=== PATIENT | female | born 2000 | race Asian ===

== ENCOUNTER → 2021-08-09 10:38 | Outpatient (CLI) | payer OTHER, MEDICAID, SELFPAY ==
--- NOTE | 2021-08-09 | DI.US.S_ITS ---
PROCEDURE: US THYROID INDICATIONS: HYPOTHYROIDISM TECHNIQUE: Real-time scanning was performed of the thyroid gland, with image documentation. COMPARISON: None. FINDINGS: Right: The right thyroid lobe measures 1.3 x 1.3 x 4.3 centimeters. No nodule. Uniform and normal thyroid echogenicity. Left: The left thyroid lobe measures 1.1 x 1.3 x 4.4 centimeters. No nodule. Uniform and normal thyroid echogenicity. Isthmus: 2 millimeter thickness and normal in appearance. IMPRESSION: Normal size and appearance of the thyroid. No nodule or mass. Dictated by: Axel Rivas M.D. on 08/10/2021 at 11:07 Approved by: Axel Rivas M.D. on 08/10/2021 at 11:07
== END ==
PROVIDERS: PCP Family Medicine; Referring Provider Family Medicine; Visit Provider Family Medicine
DX: E03.9 Hypothyroidism, unspecified (principal)
CPT/HCPCS: 76536

== ENCOUNTER 2021-08-19 15:14 | Emergency (ER) | payer OTHER, MEDICAID, SELFPAY ==
[2021-08-19] VITALS (7 sets, daily range): BP systolic 105–128; BP diastolic 63–68; PULSE 77–93; RESP 16–22; TEMP 36.4; O2SAT 100; BMI 24.5
--- NOTE | 2021-08-19 15:27 | DI.RAD.S_ITS ---
PROCEDURE: XR CHEST 1V INDICATIONS: chest pain TECHNIQUE: One view of the chest was acquired. COMPARISON: None. FINDINGS: Surgical changes and devices: None. Lungs and pleura: Lungs are clear. No pleural effusions or pneumothorax. Mediastinum: Mediastinal contours appear normal. Heart size is normal. Bones and chest wall: No suspicious bony lesions. Overlying soft tissues appear unremarkable. IMPRESSION: No acute cardiopulmonary pathology. Dictated by: Perez Baxter M.D. on 08/19/2021 at 15:56 Approved by: Perez Baxter M.D. on 08/19/2021 at 15:56
[2021-08-19] MEDS: diphenhydrAMINE 25 MG TABLET 50 MG PO (15:30)
[2021-08-19 15:52] LABS: Add Manual Diff / Slide Review NO; Basophils Absolute Auto 0 /uL (0-100); Basophils Percent Auto 0.8 % (0-2); Eosinophils Absolute Auto 100 /uL (0-450); Eosinophils Percent Auto 2.1 % (2-4); Hematocrit 39.2 % (36-46); Hemoglobin 12.9 g/dL (12.0-16.0); Lymphocytes Absolute Auto 1600 /uL (1100-4500); Lymphocytes Percent Auto 26.5 % (25-40); Mean Corpuscular HGB Conc 32.8 % (30-36); Mean Corpuscular Hemoglobin 28.2 PG (26-34); Mean Corpuscular Volume 85.9 fL (80-100); Monocytes Absolute Auto 400 /uL (0-900); Monocytes Percent Auto 6.5 % (3-14); Neutrophils Absolute Auto 3900 /uL (1500-7000); Neutrophils Percent Auto 64.1 % (50-75); Platelet Count 345 X10^3/uL (150-400); Red Blood Cell Count 4.57 X10^6/uL (4.0-5.2); Red Cell Distribution Width 12.9 % (11.6-14.8); White Blood Cell Count 6.1 X10^3/uL (4.5-11.0)
[2021-08-19 16:05] LABS: Alanine Aminotransferase 23 IU/L (<35); Albumin 4.7 g/dL (3.5-5.0); Albumin Globulin Ratio 1.5 (1.0-2.8); Alkaline Phosphatase 78 U/L (38-126); Aspartate Aminotransferase 25 IU/L (14-36); BUN Creatinine Ratio 11.5 (6-22); Bilirubin Total 0.3 mg/dL (0.2-1.3); Blood Urea Nitrogen 7 mg/dL (7-17); Calcium 9.5 mg/dL (8.4-10.2); Carbon Dioxide 27 mmol/L (22-32); Chloride 101 mmol/L (98-107); Creatine Kinase 43 U/L (30-135); Estimated Glomerular Filt Rate > 60.0 mL/min (>60); Globulin 3.2 g/dL (1.7-4.1); Glucose 87 mg/dL (70-100); HEMOLYSIS < 15 (0-50); Lipase 678 U/L (23-300); Magnesium 1.9 mg/dL (1.6-2.3); Potassium 3.6 mmol/L (3.4-5.1); Sodium 139 mmol/L (137-145); Total Protein 7.9 g/dL (6.3-8.2)
[2021-08-19 16:16] LABS: Troponin I < 0.012 ng/mL (0.01-0.034)
--- NOTE | 2021-08-19 21:22 | ED_ITS ---
HPI - Chest Pain General Chief Complaint: Chest Pain Stated Complaint: CHEST PAIN SWELLING OF THROAT Time Seen by Provider: 08/19/21 21:13 Source: patient Mode of arrival: Ambulatory Limitations: no limitations History of Present Illness HPI narrative: This is a 20-year-old female comes emergency department with com plaint of swelling sensation in her throat and sometimes tightness in her chest. She states it occurred today while driving in her car at around 2:00 a.m.. She states Um mid has improved after some Benadryl here. She has had multiple episodes in the past. She thought that it may be related to pollen and springtime but she has also noted sometimes after foods but not consistently. She was started on an anti reflux medication which helps somewhat. She has also been told maybe it was her thyroid. She does not have any swelling of her lips, mouth or face or body no rash or skin changes. She does not feel tight or wheezy in her chest currently. She denies pain. Denies any cough, cold or congestion. No runny nose. No swelling in her extremities. No shortness of breath. No nausea or vomiting. No abdominal pain, no back or flank pain. She denies any urinary symptoms. No diarrhea constipation. She has a history of asthma and seasonal allergies she takes montelukast, loratadine, Nexium and surgeries 17. No prior surgeries. No tobacco alcohol or illicit. She has a family history of asthma and thyroid issues. She has been told that she has been on steroids a lot for similar symptoms in the past and that the lining of her soften guess is probably irritated. Her primary care is Dr. Cordero. Related Data Allergies Allergy/AdvReac Type Severity Reaction Status Date / Time No Known Drug Allergies Allergy Verified 08/19/21 15:17 Review of Systems Review of Systems ROS Unobtainable: All systems reviewed & are unremarkable except as noted in HPI and below Patient History Social History Smoking Status: Never smoker Smoking Status: Never smoker Substance Use Type: does not use Exam Narrative Exam Narrative: GEN: well nourished, well appearing female, alert and oriented x 3, patient appears to be in mild distress. HEENT: Atraumatic, pupils are equal round reactive to light, extraocular movements are intact, nares are clear, Throat is clear without any exudates, erythema, tonsillar enlargement or uvular deviation, no oral facial swelling. Normal speech. No stridor. No wheeze. No hoarseness. HEART: Regular rate and rhythm without murmur, clicks, rubs. LUNGS:Lungs clear to auscultation, no wheezes, rales, crackles, chest moves symmetrically ABD:bowel sounds normal, soft, non-tender, no guarding, rebound, rigidity, no masses noted, no hepatosplenomegaly :No CVA tenderness MSCL: Non-tender, full range of motion. NEURO:CN 2-12 intact, sensation normal SKIN: No rash, erythema or other skin changes. Initial Vital Signs Initial Vital Signs: Vital Signs Temperature 97.6 F 08/19/21 15:17 Pulse Rate 93 H 08/19/21 15:17 Respiratory Rate 18 08/19/21 15:17 Blood Pressure 128/68 08/19/21 15:17 Pulse Oximetry 100 08/19/21 15:17 Course Orders Ordered: Discontinued Medications Dexamethasone (Dexamethasone 10 Mg/Ml Vial) 10 mg PO NOW ONE Stop: 08/19/21 21:58 Last Admin: 08/19/21 22:04 Dose: 10 mg Documented by: AN Diphenhydramine HCl (Diphenhydramine 25 Mg Tablet) 50 mg PO NOW ONE Stop: 08/19/21 15:24 Last Admin: 08/19/21 15:30 Dose: 50 mg Documented by: PILLO Vital Signs Vital signs: Vital Signs - 8 hr 08/19/21 15:17 08/19/21 20:52 08/19/21 21:00 Temperature 97.6 F Pulse Rate 93 H 77 88 Respiratory Rate 18 17 22 Blood Pressure 128/68 105/63 Pulse Oximetry 100 100 100 08/19/21 21:30 08/19/21 22:00 Temperature Pulse Rate 79 83 Respiratory Rate 17 16 Blood Pressure 107/65 106/65 Pulse Oximetry 100 100 MDM - Chest Pain Lab Data Result diagrams: 08/19/21 15:42 08/19/21 15:42 Labs: Lab Results 08/19/21 08/19/21 Range/Units 15:42 15:42 WBC 6.1 (4.5-11.0) X10^3/uL RBC 4.57 (4.0-5.2) X10^6/uL Hgb 12.9 (12.0-16.0) g/dL Hct 39.2 (36-46) % MCV 85.9 (80-100) fL MCH 28.2 (26-34) PG MCHC 32.8 (30-36) % RDW 12.9 (11.6-14.8) % Plt Count 345 (150-400) X10^3/uL Neut % (Auto) 64.1 (50-75) % Lymph % (Auto) 26.5 (25-40) % Mclennan % (Auto) 6.5 (3-14) % Eos % (Auto) 2.1 (2-4) % Baso % (Auto) 0.8 (0-2) % Neut # (Auto) 3900 (8334-2613) /uL Lymph # (Auto) 1600 (0737-9989) /uL Mclennan # (Auto) 400 (0-900) /uL Eos # (Auto) 100 (0-450) /uL Baso # (Auto) 0 (0-100) /uL Sodium 139 (137-145) mmol/L Potassium 3.6 (3.4-5.1) mmol/L Chloride 101 (98-107) mmol/L Carbon Dioxide 27 (22-32) mmol/L BUN 7 (7-17) mg/dL Creatinine 0.61 (0.52-1.04) mg/dL Estimated GFR > 60.0 (>60) mL/min BUN/Creatinine Ratio 11.5 (6-22) Glucose 87 (70-100) mg/dL Calcium 9.5 (8.4-10.2) mg/dL Magnesium 1.9 (1.6-2.3) mg/dL Total Bilirubin 0.3 (0.2-1.3) mg/dL AST 25 (14-36) IU/L ALT 23 (<35) IU/L Alkaline Phosphatase 78 (38-126) U/L Total Creatine Kinase 43 (30-135) U/L CK-MB (CK-2) TNP CK-MB (CK-2) Rel Index TNP Troponin I < 0.012 (0.01-0.034) ng/mL Total Protein 7.9 (6.3-8.2) g/dL Albumin 4.7 (3.5-5.0) g/dL Globulin 3.2 (1.7-4.1) g/dL Albumin/Globulin Ratio 1.5 (1.0-2.8) Lipase 678 H (23-300) U/L Point of Care Testing Test Results Negative Urine Dip Bedside Urine Glucose Negative Bedside Urine Bilirubin - Negative Bedside Urine Ketone - Negative Urine Specific [place] 1.010 Bedside Urine Occult Blood - Negative Bedside Urine pH 7.0 Bedside Urine Protein - Negative Bedside Urine Urobilinogen - Negative Bedside Urine Nitrite - Negative Bedside Urine Leukocytes - Negative Esterase Imaging Data Chest x-ray: Radiologist's Impression: [address] [address] XRay Report Signed Patient: Ivette De La Cruz MR#: [id number] : 2000 Acct:[id number] Age/Sex: 20 / F Date of Service: 08/19/21 Loc: ED Accession Number: [id number] ?? Procedure: XR chest 1V Ordering Provider: Britany Ruiz MD PROCEDURE:? XR CHEST 1V ? INDICATIONS:? chest pain ? TECHNIQUE:? One view of the chest was acquired.? ? COMPARISON:? None. ? FINDINGS:? ? Surgical changes and devices:? None.? ? Lungs and pleura:? Lungs are clear.? No pleural effusions or pneumothorax.? ? Mediastinum:? Mediastinal contours appear normal.? Heart size is normal.? ? Bones and chest wall:? No suspicious bony lesions.? Overlying soft tissues appear unremarkable.? ? IMPRESSION:? No acute cardiopulmonary pathology. ? ? Dictated by: Perez Baxter M.D. on 08/19/2021 at 15:56 ? ? Approved by: Perez Baxter M.D. on 08/19/2021 at 15:56?? US - abdomen: Radiologist's Impression: prelim-negative. [address] [address] Ultrasound Report Signed Patient: Ivette De La Cruz MR#: [id number] : 2000 Acct:[id number] Age/Sex: 20 / F Date of Service: 08/19/21 Loc: ED Accession Number: [id number] ?? Procedure: US abdomen limited Ordering Provider: Mank,Elizabeth C D.O. PROCEDURE: US ABDOMEN LIMITED ? INDICATIONS:? CHEST PAIN AND ELEVATED LIPASE ? TECHNIQUE:? Real-time focused scanning was performed of the abdomen, with image documentation.? ? COMPARISON:? None. ? FINDINGS:? ? Liver is normal in size and homogeneous in echotexture. ? Gallbladder is sonographically normal. No gallstones. No gallbladder wall thickening.? Gallbladder wall measures 1.7 millimeters.? No pericholecystic fluid. No sonographic Smith sign. ? Biliary tree is nondilated.? Common bile duct measures 4.4 millimeters. ? Head and body pancreas are sonographically normal.? Tail is not visualized due to bowel gas and cannot be evaluated. ? IMPRESSION:? No sonographic evidence of cholelithiasis or cholecystitis. If there is continued clinical concern for cholecystitis, a nuclear medicine HIDA scan should be considered for further evaluation. ? ? ? Dictated by: Jessica Quinones MD, PhD on 08/19/2021 at 23:04 ? ? Approved by: Jessica Quinones MD, PhD on 08/19/2021 at 23:05?? ECG Data Attestation: I personally reviewed and interpreted this ECG as follows: Prior ECG tracings: not available for review Interpretation: Sinus rhythm rate of 90 SC 136 QRS of 92 and QTC of 435. T wave inversion in 3 and AVF. No other changes appreciated. No ST elevation. MDM Narrative Medical decision making narrative: 20-year-old female comes emergency department sensation of swelling in her throat. Had improved her in the department. She had dose of Benadryl. So for dose of dexamethasone and has not had any worsening symptoms. We did discuss that seems like sometimes her symptoms will occur when exposed to seasonal type allergies or some foods. She has found that albuterol seems to be helpful discussed that maybe she is having an asthma exacerbation. No other acute allergic changes are noted. She did have labs with a lipase that was elevated and has had some chest discomfort she was evaluation ultrasound. She has mild elevation her pancreatic enzyme a but no other acute findings at this time. All questions answered. Patient and I discussed return precautions. Discharge Plan Departure Patient Disposition: Home Clinical Impression: Elevated lipase Instructions: Acute Pancreatitis Activity Restrictions/Additional Instructions: Your lipase level is mildly elevated today at 678. This is likely not causing the sensation in your throat but could cause chest discomfort or abdominal pain. Some individuals will feel nausea or vomiting. Please follow-up with your physician for recheck. You may continue home medications as prescribed. Please return for fevers, new or worsening abdominal, chest or back pain. Persistent vomiting, new concerns swelling or tightness in your throat, swelling of your lips, tongue or mouth, rash, hives, shortness of breath or wheezing or other new or concerning symptoms. Referrals: Vito Cordero MD [Primary Care Provider] -
--- NOTE | 2021-08-19 21:55 | DI.US.S_ITS ---
PROCEDURE: US ABDOMEN LIMITED INDICATIONS: CHEST PAIN AND ELEVATED LIPASE TECHNIQUE: Real-time focused scanning was performed of the abdomen, with image documentation. COMPARISON: None. FINDINGS: Liver is normal in size and homogeneous in echotexture. Gallbladder is sonographically normal. No gallstones. No gallbladder wall thickening. Gallbladder wall measures 1.7 millimeters. No pericholecystic fluid. No sonographic Smith sign. Biliary tree is nondilated. Common bile duct measures 4.4 millimeters. Head and body pancreas are sonographically normal. Tail is not visualized due to bowel gas and cannot be evaluated. IMPRESSION: No sonographic evidence of cholelithiasis or cholecystitis. If there is continued clinical concern for cholecystitis, a nuclear medicine HIDA scan should be considered for further evaluation. Dictated by: Jessica Quinones MD, PhD on 08/19/2021 at 23:04 Approved by: Jessica Quinones MD, PhD on 08/19/2021 at 23:05
[2021-08-19] MEDS: DEXAMETHASONE 10 MG/ML VIAL PO (22:04)
== END 2021-08-19 23:16 | disposition home or self-care (01) ==
PROVIDERS: Emergency Medicine; Emergency Provider Emergency Medicine; PCP Family Medicine
DX: R07.0 Pain in throat (principal); R07.9 Chest pain, unspecified; R74.8 Abnormal levels of other serum enzymes
CPT/HCPCS: 36415; 71045; 76705; 80053; 81003; 81025; 82550; 83690; 83735; 84484; 85025; 93005; 93010; 99284; J1100

== ENCOUNTER 2023-08-08 14:52 | Emergency (ER) | payer OTHER, SELFPAY ==
[2023-08-08 15:08] VITALS: BP 139/91; PULSE 95; RESP 16; TEMP 37; O2SAT 100; BMI 27.9
--- NOTE | 2023-08-08 15:44 | PC.NURSE ---
Pt received tattoo on L posterior FA 4 days ago. noticed a red diffuse rash covering the tattoo area, mildly raised. Saw BUD Sarmiento in [place] who prescribed keflex 500mg TID x 10 days. Has taken 2 days of ABX and states no difference. No systemic sx--denies fever. No itching. Using an antiseptic gentle wash. rash margins marked and do not appear to be spreading further outside margins.
[2023-08-08 15:55] VITALS: BP 148/84; PULSE 91; RESP 16; O2SAT 100
--- NOTE | 2023-08-08 15:57 | ED.SKABFB ---
HPI - Skin/Abscess/Foreign Bdy General Chief complaint: Skin/Abscess/Foreign Body Stated complaint: PERSISTANT RASH RT ARM Time Seen by Provider: 08/08/23 15:41 Source: patient Mode of arrival: Ambulatory Limitations: no limitations History of Present Illness HPI narrative: Patient is a 22-year-old female who got a new tattoo on her left forearm 4 days ago. About 24 hours after getting a tattoo, she developed redness around the tattoo. This has progressed. She saw a provider on [facility] 2 days ago who prescribed Keflex, t.i.d. for 10 days, for suspected cellulitis. She is been taking this for 2-1/2 days and does not think that the redness has decreased. It does not hurt or itch but it does sting when she applies ointment. She is not had a fever, there is no drainage from the rash. She reports a history of seasonal allergies and eczema, and has had skin reactions from previous tattoos. Related Data Allergies Allergy/AdvReac Type Severity Reaction Status Date / Time No Known Drug Allergies Allergy Verified 08/08/23 15:08 Review of Systems Review of Systems ROS Unobtainable: All systems reviewed & are unremarkable except as noted in HPI and below Patient History Social History Smoking Status: Never smoker Smoking Status: Never smoker Substance Use Type: does not use Exam Narrative Exam Narrative: GENERAL: 22 year old patient appears stated age. Well-developed patient, in no distress. NEURO: AOx3. HEAD: Atraumatic. Normocephalic. EYES: Pupils equal round and reactive. Extraocular motions intact. No scleral icterus. No injection or drainage. ENT: Nose without bleeding or purulent drainage. Airway patent. RESPIRATORY: No distress EXTREMITIES: No edema or joint tenderness. SKIN: Erythematous rash extending 4 cm and a eyak around her recent tattoo. The area is mildly erythematous, not warm. There is no drainage or exudate. There is no fluctuant abscess. Initial Vital Signs Initial Vital Signs: Vital Signs Temperature 98.6 F 08/08/23 15:08 Pulse Rate 95 H 08/08/23 15:08 Respiratory Rate 16 08/08/23 15:08 Blood Pressure 139/91 H 10/04/23 15:08 Pulse Oximetry 100 10/04/23 15:08 Oxygen Delivery Method Room Air 08/08/23 15:08 Course Vital Signs Vital signs: Vital Signs - 8 hr 08/08/23 15:08 08/08/23 15:55 Temperature 98.6 F Pulse Rate 95 H 91 H Respiratory Rate 16 16 Blood Pressure 139/91 H 148/84 H Pulse Oximetry 100 100 Oxygen Delivery Method Room Air Room Air MDM - Skin/Abscess/Foreign Bdy MDM Narrative Medical decision making narrative: Multiple etiologies for patient's symptoms considered including, but not limited to: Contact dermatitis, cellulitis, abscess. Patient is well-appearing and has not had a fever. There is no drainage from the rash. I suggested continuing the antibiotics, using Aquaphor to moisturize the skin, and watchful waiting. I suspect this is a contact dermatitis and will resolve over time. Return precautions discussed. Patient's symptoms improved over duration of stay with above-stated therapies. Findings and discharge diagnosis discussed with patient/family followed by verbalization of understanding Return precautions discussed with patient/family whom verbalize understanding of diagnosis and plan Discharge Plan Departure Patient Disposition: Home Clinical Impression: Rash, skin Instructions: DI for Cellulitis -- Adult, DI for Contact Dermatitis Activity Restrictions/Additional Instructions: *You have been diagnosed with a skin rash around your new tattoo. I agree that it is difficult to tell if this is a skin infection or a reaction to the tattoo or the tattoo ink. I am reassured that you do not have a fever and there is no drainage from the site. I would suggest continuing to take the antibiotics that were prescribed by a previous provider, applying Aquaphor twice daily to keep the area moist and protected, and continuing to monitor. I would take pictures daily to track the redness. If it is not getting better after 5 days of antibiotics or if it gets worse (if you develop a fever, if there is drainage from the wound, if it is spreading up your arm significantly) then you should return to the walk-in clinic or the emergency room for reassessment. *What to do: *Please continue to take your regular medications as directed. [ ] New medication prescriptions sent to your pharmacy: [ ] [ ] New medication written as a paper prescription [x] No new medications given *Please follow up with your primary care provider in 2-3 days, call for an appointment. Let them know you were seen in the Emergency Department and that we ask that you be seen in follow up. We will electronically transmit a record of today's note if your PCP is in our system *If you do not have a primary care provider please contact the [facility] Resource line at [phone]. They will ask some questions about your medical history and help get you set up with a doctor in the community. *Return to Emergency Department if you should have any new, worsening or concerning symptoms, such as [fever greater than 101 F, shaking chills, worsening pain, persistent vomiting or other concerning symptoms]. Stand Alone Forms: Patient Portal/API
== END 2023-08-08 15:59 | disposition home or self-care (01) ==
PROVIDERS: Emergency Provider Physician Assistant
DX: R21 Rash and other nonspecific skin eruption (principal)
CPT/HCPCS: 99281

== ENCOUNTER 2024-07-30 16:51 | Emergency (ER) | payer OTHER, MEDICAID, SELFPAY ==
[2024-07-30 17:07] VITALS: BP 130/85; PULSE 93; RESP 16; TEMP 36.9; O2SAT 98; BMI 27.9
--- NOTE | 2024-07-30 19:01 | PC.NURSE ---
This RN notes patient throat is red and slightly inflamed.
[2024-07-30 20:21] VITALS: BP 119/75; PULSE 86; RESP 16; O2SAT 100
[2024-07-30 21:16] LABS: Adenovirus Not Detected (Not Detect); B. parapertussis Not Detected (Not Detecte); Bordetella pertussis Not Detected (Not Detect); Chlamydophila pneumoniae Not Detected (Not Detect); Coronavirus 229E Not Detected (Not Detect); Coronavirus HKU1 Not Detected (Not Detect); Coronavirus NL 63 Not Detected (Not Detect); Coronavirus OC43 Not Detected (Not Detect); Human Metapneumovirus Not Detected (Not Detect); Human Rhinovirus/Enterovirus Not Detected (Not Detect); Influenza A Not Detected (Not Detect); Influenza B Not Detected (Not Detect); Mycoplasma pneumoniae Not Detected (Not Detect); Parainfluenza Virus 1 Not Detected (Not Detect); Parainfluenza Virus 2 Not Detected (Not Detect); Parainfluenza Virus 3 Not Detected (Not Detect); Parainfluenza Virus 4 Not Detected (Not Detect); Respiratory Syncytial Virus Not Detected (Not Detect); SARS- CoV-2 Not Detected (Not Detecte)
--- NOTE | 2024-07-30 21:28 | ED_ITS ---
HPI - URI/Sore Throat General Chief Complaint: Upper Respiratory Symptoms Stated Complaint: sinus infection Time Seen by Provider: 07/30/24 18:38 Source: patient Mode of arrival: Ambulatory History of Present Illness HPI Narrative: 23-year-old female with history of allergies presents with 1 week of nasal congestion and sore throat. Seen several days ago at [facility] for same without formal diagnosis. Patient states that this morning she coughed up some green mucous, but hasn't had cough or produced mucous since. Related Data Allergies Allergy/AdvReac Type Severity Reaction Status Date / Time No Known Drug Allergies Allergy Verified 07/30/24 17:10 Patient History Social History (System 08/09/23 @ 08:41 by Lady Lena García) Smoking Status: Never smoker Smoking Status: Never smoker Substance Use Type: does not use Exam Initial Vital Signs Initial Vital Signs: Vital Signs Temperature 98.4 F 07/30/24 17:07 Pulse Rate 93 H 07/30/24 17:07 Respiratory Rate 16 07/30/24 17:07 Blood Pressure 130/85 07/30/24 17:07 Pulse Oximetry 98 07/30/24 17:07 Oxygen Delivery Method Room Air 07/30/24 17:07 Const: Awake, alert, no acute distress, nontoxic appearing HEENT: mild pharyngeal erythema without edema or exudates Skin: Warm, Dry, intact, no rashes Neuro: AO x3, CN II-XII grossly intact, moves all extremities Course Orders Ordered: ED Orders 07/30/24 20:20 Respiratory Panel (Film Array) Stat Vital Signs Vital signs: Vital Signs - 8 hr 07/30/24 22:21 Temperature 98.3 F Pulse Rate 94 H Respiratory Rate 18 Blood Pressure 142/79 H Pulse Oximetry 100 Oxygen Delivery Method Room Air MDM - URI/Sore Throat Lab Data Labs: Lab Results 07/30/24 Range/Units 20:20 Chlamy pneumoniae PCR Not detected (Not Detect) Adenovirus (PCR) Not detected (Not Detect) B. pertussis DNA (PCR) Not detected (Not Detect) B.parapertussis DNA PCR Not detected (Not Detecte) Coronavirus OC43 (PCR) Not detected (Not Detect) Coronavirus HKU1 (PCR) Not detected (Not Detect) Coronavirus 229E (PCR) Not detected (Not Detect) SARS-CoV-2 (PCR) Not detected (Not Detecte) Coronavirus NL63 (PCR) Not detected (Not Detect) Human Metapneumovir PCR Not detected (Not Detect) Influenza Type A (PCR) Not detected (Not Detect) Influenza Type B (PCR) Not detected (Not Detect) M. pneumoniae (PCR) Not detected (Not Detect) Parainfluenza 1 (PCR) Not detected (Not Detect) Parainfluenza 2 (PCR) Not detected (Not Detect) Parainfluenza 3 (PCR) Not detected (Not Detect) Parainfluenza 4 (PCR) Not detected (Not Detect) RSV (PCR) Not detected (Not Detect) Entero/Rhino (PCR) Not detected (Not Detect) MDM Narrative Medical decision making narrative: Nonspecific sore throat and green mucus production this morning. Physical exam is fairly unremarkable, she does have mild pharyngeal erythema but no edema or exudates. Mucous membranes are moist. Respiratory panel negative for common viruses her pathogens. Quite possibly allergic in nature since patient does report long history of allergies. Patient counseled on supportive care measures to take at home. Discharge Plan Departure Patient Disposition: Home Clinical Impression: Upper respiratory infection Instructions: DI for Pharyngitis/Tonsillopharyngitis -- Adult Activity Restrictions/Additional Instructions: Your respiratory panel was negative for the most common viruses. Take tylenol and ibuprofen as needed for pain. You may use salt water gargles or lozenges for pain Referrals: Vito Cordero MD [Primary Care Provider] - Stand Alone Forms: Patient Portal/API
[2024-07-30 22:21] VITALS: BP 142/79; PULSE 94; RESP 18; TEMP 36.8; O2SAT 100
== END 2024-07-30 22:20 | disposition home or self-care (01) ==
PROVIDERS: Emergency Provider Emergency Medicine; PCP Family Medicine
DX: J06.9 Acute upper respiratory infection, unspecified (principal)
CPT/HCPCS: 87633; 99282

== ENCOUNTER 2025-05-02 05:16 | Emergency (ER) | payer OTHER, MEDICAID, SELFPAY ==
--- NOTE | 2025-05-02 05:23 | EKG_ITS ---
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
[2025-05-02 05:28] VITALS: BP 136/81; PULSE 105; RESP 18; O2SAT 98; BMI 28.3
--- NOTE | 2025-05-02 05:41 | ED.CHESTPAIN ---
HPI - Chest Pain General Chief Complaint: Chest Pain Stated Complaint: Facial Pain, Chest Pressure Time Seen by Provider: 05/02/25 05:23 Source: patient Mode of arrival: Ambulatory History of Present Illness HPI narrative: 24-year-old female with no significant past medical or past surgical history presents with multiple complaints today namely 1 intermittent chest pain that has been going on for the last 4-6 weeks she has had a history of chest wall inflammation for which she has taken some ibuprofen for in the past and that when she touches her chest on the left-sided does reproduce the pain. Patient reports having left-sided chest pain earlier today as well was seen at urgent care for left-sided neck jaw swelling and earache for which they did a chest x-ray and COVID and strep were negative. Patient was discharged on Tessalon Perles. Patient also reports last exercising over a week ago doing cardio exercises runny up inclines on a treadmill but denies fever chills shortness of breath dyspnea on exertion leg pain leg swelling. Other than what is stated 14 point review of system is negative. Related Data Previous Rx's ?Medication ?Instructions ?Recorded amoxicillin 875 mg-potassium 1 tab PO Q12H #14 tabs 05/02/25 clavulanate 125 mg tablet ketorolac 10 mg tablet 10 mg PO Q6H PRN pain #20 tabs 05/02/25 Allergies Allergy/AdvReac Type Severity Reaction Status Date / Time No Known Drug Allergies Allergy Verified 07/30/24 17:10 Review of Systems Review of Systems ROS Unobtainable: All systems reviewed & are unremarkable except as noted in HPI and below Exam Narrative Exam Narrative: GENERAL: [24] year old patient appears stated age. Well-developed patient, in mild distress. HEAD: Atraumatic. Normocephalic. EYES: Pupils equal round and reactive. Extraocular motions intact. No scleral icterus. No injection or drainage. ENT: Nose without bleeding. Bilateral maxillary sinuses tender to palpate worse on left side with drainage. Throat without erythema, tonsillar hypertrophy or exudate. Airway patent. NECK: Trachea midline. Non tender CARDIOVASCULAR: Tachycardic Regular rate and rhythm without murmurs, gallops, or rubs. Left upper chest wall tender to palpate completely reproduces pain RESPIRATORY: Clear to auscultation. Breath sounds equal bilaterally. No wheezes, rales, or rhonchi. GASTROINTESTINAL: Abdomen soft, non-tender, nondistended. EXTREMITIES: No edema or joint tenderness. BACK: Nontender without deformity or crepitance. No flank tenderness. NEURO: AOx3. SKIN: No rash or erythema of visible areas Initial Vital Signs Initial Vital Signs: Vital Signs Pulse Rate 105 H 05/02/25 05:28 Respiratory Rate 18 05/02/25 05:28 Blood Pressure 136/81 05/02/25 05:28 Pulse Oximetry 98 05/02/25 05:28 Oxygen Delivery Method Room Air 05/02/25 05:28 Course Orders Ordered: ED Orders 05/02/25 05:23 EKG-12 Lead Stat Acetaminophen (Acetaminophen 325 Mg Tablet) 975 mg PO NOW ONE Stop: 05/02/25 05:41 Amoxicillin/Clavulanate Potassium (Amoxicillin/Clav 875/125 Mg) 1 tab PO NOW ONE Stop: 05/02/25 05:41 Ketorolac Tromethamine (Ketorolac 30 Mg/Ml Vial) 30 mg IM NOW ONE Stop: 05/02/25 05:41 Vital Signs Vital signs: Vital Signs - 8 hr 05/02/25 05:28 Pulse Rate 105 H Respiratory Rate 18 Blood Pressure 136/81 Pulse Oximetry 98 Oxygen Delivery Method Room Air MDM - Chest Pain ECG Data Interpretation: Sinus Tach HR 103 ME 138 QRS [address]-t wave change No previous ekg to compare against MDM Narrative Medical decision making narrative: Vital signs, nurse triage note, medication list, previous ER visits and all imaging studies reviewed. EKG showed sinus tachycardic heart rate of 103 no STT wave changes. Left-sided chest wall was tender to palpate and completely reproduce chest pain. Patient given Toradol Tylenol and Augmentin here. Differential diagnosis includes chest wall pain anxiety GERD bacterial sinusitis viral syndrome dental abscess anxiety. DC home on Augmentin and ketorolac prescription and to return with new or worsening symptoms and follow up PCP in 1-2 weeks with no improvement in symptoms. Discharge Plan Departure Patient Disposition: Home Clinical Impression: Acute chest wall pain, Acute bacterial sinusitis Instructions: DI for Costochondritis Activity Restrictions/Additional Instructions: Return with new or worsening symptoms. Take your medicines as directed and follow up PCP 1-2 weeks if no improvement in symptoms. Prescriptions: New ketorolac 10 mg tablet 10 mg PO Q6H PRN (Reason: pain) Qty: 20 0RF Rx Instructions: maximum total duration of 5 days from all oral, intranasal, or parenteral formulations amoxicillin-pot clavulanate 875-125 mg tablet 1 tab PO Q12H Qty: 14 0RF Referrals: Vito Cordero MD [Primary Care Provider, Family Practice] Stand Alone Forms: Patient Portal/API
[2025-05-02] MEDS: AMOXICILLIN/CLAV 875/125 MG 1 TAB PO (06:01)
[2025-05-02] MEDS: ACETAMINOPHEN 325 MG TABLET 975 MG PO (06:01)
[2025-05-02] MEDS: KETOROLAC 30 MG/ML VIAL IV (06:05)
[2025-05-02 06:20] VITALS: BP 129/74; PULSE 76; RESP 18; TEMP 36.6; O2SAT 100
== END 2025-05-02 06:31 | disposition home or self-care (01) ==
PROVIDERS: Emergency Provider Family Medicine; PCP Family Medicine
DX: R07.89 Other chest pain (principal); J01.90 Acute sinusitis, unspecified
CPT/HCPCS: 36415; 93005; 93010; 96374; 99284; J1885

== ENCOUNTER 2025-05-30 04:53 | Emergency (ER) | payer OTHER, SELFPAY ==
[2025-05-30 05:04] VITALS: BP 124/65; PULSE 99; RESP 15; TEMP 36.7; O2SAT 97; BMI 27.6
--- NOTE | 2025-05-30 05:12 | ED.NEUROSD ---
HPI - Neuro Symptoms/Deficit General Chief Complaint: Neuro Symptoms/Deficit Stated Complaint: Abnormal Reaction to Medication, Body Numbing, SOB Time Seen by Provider: 05/30/25 04:55 Source: patient Mode of arrival: Ambulatory History of Present Illness HPI Narrative: 24-year-old female reached into her bag to pull out spilled Claritin, did not believe that it was mixed with any other medications, took Claritin dose yesterday, subsequently has felt tingling numbness like sensation to bilateral upper extremities. Some itching. No hives. Early this morning 0230 she took 40 mg of prednisone from an old supply of prednisone. Itching has gone away. Still has the tingling sensation to both arms. No swelling to face lips tongue eyelids. No abdominal pain or diarrhea. On Anticoagulants: No Related Data Previous Rx's ?Medication ?Instructions ?Recorded amoxicillin 875 mg-potassium 1 tab PO Q12H #14 tabs 05/02/25 clavulanate 125 mg tablet ketorolac 10 mg tablet 10 mg PO Q6H PRN pain #20 tabs 05/02/25 Allergies Allergy/AdvReac Type Severity Reaction Status Date / Time No Known Drug Allergies Allergy Verified 07/30/24 17:10 Review of Systems Hematologic/Lymphatic On Anticoagulants: No Patient History Social History (System 08/09/23 @ 08:41 by Lady Lena García) Smoking Status: Never smoker Smoking Status: Never smoker Exam Narrative Exam Narrative: GENERAL: Well-developed patient, in mild distress. HEAD: Atraumatic. Normocephalic. EYES: Pupils equal round and reactive. Extraocular motions intact. No scleral icterus. No injection or drainage. ENT: Nose without bleeding, purulent drainage. Throat without erythema, tonsillar hypertrophy or exudate. Airway patent. NECK: Trachea midline. Non tender CARDIOVASCULAR: Regular rate and rhythm without murmurs, gallops, or rubs. RESPIRATORY: Clear to auscultation. Breath sounds equal bilaterally. No wheezes, rales, or rhonchi. GASTROINTESTINAL: Abdomen soft, non-tender, nondistended. EXTREMITIES: No edema or joint tenderness. BACK: Nontender without deformity or crepitance. No flank tenderness. NEURO: AOx3. Motor functions grossly nonfocal. SKIN: No rash or erythema of visible areas Initial Vital Signs Initial Vital Signs: Vital Signs Temperature 98.0 F 05/30/25 05:04 Pulse Rate 99 H 05/30/25 05:04 Respiratory Rate 15 05/30/25 05:04 Blood Pressure 124/65 05/30/25 05:04 Pulse Oximetry 97 05/30/25 05:04 Oxygen Delivery Method Room Air 05/30/25 05:04 Course Orders Ordered: Discontinued Medications Diphenhydramine HCl (Diphenhydramine 50 Mg/Ml Vial) 50 mg IM NOW ONE Stop: 05/30/25 05:18 Last Admin: 05/30/25 05:31 Dose: 50 mg Documented By: Vital Signs Vital signs: Vital Signs - 8 hr 05/30/25 05:04 05/30/25 06:18 Temperature 98.0 F Pulse Rate 99 H 87 Respiratory Rate 15 18 Blood Pressure 124/65 117/79 Pulse Oximetry 97 96 Oxygen Delivery Method Room Air Room Air MDM - Neuro Symptoms/Deficit MDM Narrative Medical decision making narrative: 24-year-old female with history of allergies, has itching to bilateral upper extremities with tingling sensation, no urticaria/hives, possibly after taking oral Claritin from a spilled supply in her bag, versus exposure to some other pill not identified or known to her. She has not had a similar reaction to antihistamines before. She took oral steroid prednisone from an old supply 3 hours prior to coming in, itching has resolved. Still has tingling sensation numbness sensation bilateral upper extremities. No respiratory distress. She has had Benadryl before many times without problems. IM Benadryl. Further observe in the emergency department for now. No serum studies indicated. 0600, feels improved. Encouraged to take Benadryl 1 tablet 4 times daily for the next few days. Perhaps now avoid Claritin if this was the culprit, there there might have been exposure some other unidentified medication. She has supply of prednisone 20 mg tablets, encouraged to take 40 mg a day for the next few days. Follow up per PCP early next week advised if any recurrence of symptoms. Return precautions discussed. Discharge Plan Departure Patient Disposition: Home Clinical Impression: Pruritus, History of allergic reaction Activity Restrictions/Additional Instructions: Itching and tingling sensation to the arms after taking Claritin tablet that is had spilled in your bag. You have allergies. You had taken prednisone 40 mg prior to coming in, from your own supply you have had for because of history of numerous previous allergic reactions. No tongue swelling or lip swelling. No trouble speaking or swallowing. Intramuscular injection of Benadryl antihistamine given, with further improvement of symptoms. You felt better and wanted to go home. Consider taking prednisone 40 mg daily for the next 4 days. Also consider taking Benadryl 25 mg tablets 1 tablet 4 times daily for the next few days. Perhaps avoid your Claritin for now. Recheck symptoms with your regular doctor early next week if having recurrent symptoms. Return to this/nearest emergency department for any change worsening symptoms or any concerns prior. Prescriptions: No Action ketorolac 10 mg tablet 10 mg PO Q6H PRN (Reason: pain) Qty: 20 0RF Rx Instructions: maximum total duration of 5 days from all oral, intranasal, or parenteral formulations amoxicillin-pot clavulanate 875-125 mg tablet 1 tab PO Q12H Qty: 14 0RF Referrals: Vito Cordero MD [Primary Care Provider, Family Practice] Stand Alone Forms: Patient Portal/API
[2025-05-30] MEDS: diphenhydrAMINE 50 MG/ML VIAL IM (05:31)
[2025-05-30 06:18] VITALS: BP 117/79; PULSE 87; RESP 18; O2SAT 96
== END 2025-05-30 06:12 | disposition home or self-care (01) ==
PROVIDERS: Emergency Provider Emergency Medicine; PCP Family Medicine
DX: L29.9 Pruritus, unspecified (principal); R20.2 Paresthesia of skin; R20.0 Anesthesia of skin; Z91.09 Other allergy status, other than to drugs and biological substances
CPT/HCPCS: 96372; 99283; J1200